=== PATIENT | female | born 2005 | race African-American/Black ===

== ENCOUNTER 2024-01-13 14:37 | Emergency (ER) | payer MEDICAID ==
[~2024-01-13] VITALS: Ht 172.7 cm; Wt 104.0 kg
[2024-01-13 14:48] VITALS: O2SAT 100
[2024-01-13 16:17] LABS: BASOPHILS % 0.2 % (0.0-2.0); EOSINOPHILS % 0.4 % (0.0-5.0); HEMATOCRIT. 32.2 % (36.0-48.0); HEMOGLOBIN. 9.8 g/dL (12.0-16.0); LYMPHOCYTES % 23.3 % (20.0-50.0); MEAN CORPUSCULAR HEMOGLOBIN 20.1 pg (28.0-32.0); MEAN CORPUSCULAR HGB CONC 30.4 g/dL (31.0-37.0); MEAN CORPUSCULAR VOLUME 66.1 fL (81.0-99.0); MEAN PLATELET VOLUME 7.6 fl (7.4-10.4); MONOCYTES % 6.3 % (2.0-8.0); NEUTROPHILS % 69.8 % (40.0-76.0); PLATELET 392 x1000/uL (130-400); RED BLOOD CELL COUNT 4.87 mill/uL (4.2-5.4); RED CELL DISTRIBUTION WIDTH 16.6 % (11.6-14.6); WHITE BLOOD COUNT 6.3 x1000/uL (4.5-11.0)
[2024-01-13 16:18] LABS: ADD RBC MORPHOLOGY YES; DIFFERENTIAL COMMENT 1
[2024-01-13] MEDS: KETOROLAC 60MG/2ML VIAL IM ONE (16:22)
[2024-01-13 16:26] LABS: INR 1.1; PROTHROMBIN TIME 11.7 sec (9.6-11.0)
[2024-01-13 16:34] LABS: CLARITY URINE CLEAR (CLEAR); COLOR URINE YELLOW (YELLOW); GLUCOSE URINE NEGATIVE (NEGATIVE); KETONES URINE NEGATIVE (NEGATIVE); LEUKOCYTE ESTERASE URINE TRACE (NEGATIVE); NITRITE URINE NEGATIVE (NEGATIVE); OCCULT BLOOD URINE 1+ (NEGATIVE); PH URINE 5.5 (4.5-8.0); PROTEIN URINE NEGATIVE (NEGATIVE); UROBILINOGEN URINE 0.2 E.U./dL (0.2-1.0)
[2024-01-13 16:34] LABS: ANISOCYTOSIS 1+; HYPOCHROMASIA 2+; MICROCYTOSIS 3+; PLATELET ESTIMATE NORMAL
[2024-01-13 16:36] LABS: ALANINE AMINOTRANSFERASE < 7 IU/L (10-49); ALBUMIN 4.7 g/dL (3.2-4.8); ASPARTATE AMINOTRANSFERASE 16 IU/L (<34); BILIRUBIN TOTAL 0.3 mg/dL (0.1-1.0); CALCIUM 9.1 mg/dL (8.7-10.4); CARBON DIOXIDE 24 mEq/L (21-32); CHLORIDE 106 mEq/L (98-107); CREATININE 0.7 mg/dL (0.6-1.0); GLUCOSE 79 mg/dL (70-105); POTASSIUM 3.8 mEq/L (3.5-5.1); PROTEIN TOTAL 8.4 g/dL (6.0-8.3); SODIUM 136 mEq/L (136-145); UREA NITROGEN BLOOD 8 mg/dL (9-23)
[2024-01-13 16:40] LABS: HCG SCREEN NEGATIVE
[2024-01-13 16:55] LABS: BACTERIA URINE 1+; SQUAMOUS EPITHELIAL CELL URINE 1+ /lpf (RARE/1+); WBC URINE 0-2 /hpf (0-2)
[2024-01-13] MEDS ORDERED: CLIN-194 MT (19:19)
[2024-01-13] MEDS ORDERED: ACET-2708 MT (19:19)
[2024-01-13] MEDS ORDERED: METR-167 MT (19:19)
[2024-01-13] MEDS ORDERED: NAPR-1129 MT (19:19)
[2024-01-13 19:53] VITALS: BP 133/73; PULSE 83; RESP 18; TEMP 98.7
== END 2024-01-13 19:55 | disposition home or self-care (01) ==
LOC: ER 14:37
DX: R10.33 Periumbilical pain (principal)
CPT/HCPCS: 99285; 74176; 80053; 81003; 81025; 84703; 83605; 85025; 85610; 86850; 86900; 86901; 36415; 96372; J1885

== ENCOUNTER 2024-01-15 16:37 | Emergency (ER) | payer MEDICAID ==
[~2024-01-15] VITALS: Ht 170.2 cm; Wt 119.0 kg
[~2024-01-15 16:37] MED LIST: ACET-2708 MT; CLIN-194 MT; METR-167 MT; NAPR-1129 MT
[2024-01-15 16:46] VITALS: O2SAT 100
[2024-01-15] MEDS: MORPHINE SULFATE 4 MG/ML INJ (FOR IV/IM USE) IV ONE (19:17)
[2024-01-15] MEDS: CEFTRIAXONE 1GM/50ML 50 ML IV ONE (19:17)
[2024-01-15] MEDS: SODIUM CHLORIDE 0.9% 1000ML BAG (SEPSIS BOLUS) IV ONE (19:17)
[2024-01-15] MEDS: VANCOMYCIN 1G PREMIX 200 ML IV ONE (19:33)
[2024-01-15 20:00] VITALS: TEMP 98.8
[2024-01-15 20:04] LABS: BASOPHILS % 0.3 % (0.0-2.0); EOSINOPHILS % 0.8 % (0.0-5.0); HEMOGLOBIN. 10.1 g/dL (12.0-16.0); LYMPHOCYTES % 22.1 % (20.0-50.0); MEAN CORPUSCULAR HEMOGLOBIN 20.9 pg (28.0-32.0); MEAN CORPUSCULAR HGB CONC 31.5 g/dL (31.0-37.0); MEAN CORPUSCULAR VOLUME 66.3 fL (81.0-99.0); MEAN PLATELET VOLUME 8.1 fl (7.4-10.4); MONOCYTES % 6.4 % (2.0-8.0); NEUTROPHILS % 70.4 % (40.0-76.0); PLATELET 433 x1000/uL (130-400); RED BLOOD CELL COUNT 4.82 mill/uL (4.2-5.4); RED CELL DISTRIBUTION WIDTH 16.4 % (11.6-14.6); WHITE BLOOD COUNT 6.6 x1000/uL (4.5-11.0)
[2024-01-15 20:05] LABS: DIFFERENTIAL COMMENT 1
[2024-01-15 20:17] LABS: ALANINE AMINOTRANSFERASE 11 IU/L (10-49); ALBUMIN 4.7 g/dL (3.2-4.8); ASPARTATE AMINOTRANSFERASE 24 IU/L (<34); BILIRUBIN TOTAL 0.3 mg/dL (0.1-1.0); CALCIUM 9.3 mg/dL (8.7-10.4); CARBON DIOXIDE 24 mEq/L (21-32); CHLORIDE 103 mEq/L (98-107); CREATININE 0.7 mg/dL (0.6-1.0); GLUCOSE 71 mg/dL (70-105); POTASSIUM 3.5 mEq/L (3.5-5.1); PROTEIN TOTAL 8.5 g/dL (6.0-8.3); SODIUM 135 mEq/L (136-145); UREA NITROGEN BLOOD 6 mg/dL (9-23)
[2024-01-15 20:23] LABS: HCG SCREEN NEGATIVE
[2024-01-15] MEDS: DIPHENHYDRAMINE 50MG/ML VIAL IV ONE (21:12)
[2024-01-16 00:04] VITALS: BP 144/93; PULSE 90; RESP 18
[2024-01-16] MEDS: KETOROLAC 30MG/ML VIAL IV ONE (00:04)
== END 2024-01-16 00:10 | disposition short-term general hospital (02) ==
LOC: ER 16:37 → EDBEDREQSVC 18:55 → EDBEDREQTM 18:55 → ER 01-16 00:10 → CANBEDREQ 01-16 10:35
DX: L02.216 Cutaneous abscess of umbilicus (principal)
CPT/HCPCS: 80053; 84703; 83605; 85025; 87040; 36415; 84145; 96368; 96365; 96375 ×2; 99285; J0696; J1200; J3370; J2270; J7030; Z7610 ×2; J1885